=== PATIENT | female | born 1940 | race Caucasian/White ===

== ENCOUNTER 2022-07-20 16:59 | Emergency (ER) | payer MEDICARE, OTHER ==
[~2022-07-20] VITALS: Ht 160 cm; Wt 7.3 kg
[2022-07-20] MEDS ORDERED: HYDROCODON-ACE1 EA10 PO (20:18)
== END 2022-07-20 20:51 | disposition home or self-care (01) ==
LOC: ED 16:59
DX: M25.551 Pain in right hip (principal)
CPT/HCPCS: 73502; 99283-25; A9270